=== PATIENT | male | born 1980 | race Caucasian/White ===

== ENCOUNTER 2016-07-02 20:57 | Emergency (ER) | payer BC, OTHER ==
[~2016-07-02] VITALS: Ht 177.8 cm; Wt 99.8 kg
[2016-07-02] MEDS ORDERED: IBUP600T26 PO (22:36)
[2016-07-02] MEDS ORDERED: SOMA350T PO (22:36)
[2016-07-02] MEDS ORDERED: IBUPROFEN 600 MG TAB PO ONE (22:45)
[2016-07-02] MEDS ORDERED: diazePAM 5 MG TAB PO ONE (22:45)
[2016-07-02 22:48] VITALS: BP 118/88
== END 2016-07-02 22:49 | disposition home or self-care (01) ==
LOC: M ED 22:22
DX: M54.12 Radiculopathy, cervical region (principal); Z87.891 Personal history of nicotine dependence

== ENCOUNTER → 2017-12-04 | Outpatient (REF) | payer BC, OTHER | LOC: M SFHCLERA 18:45 | DX: J02.9 Acute pharyngitis, unspecified (principal) | CPT/HCPCS: 87880 ==

== ENCOUNTER → 2018-09-03 | Outpatient (CLI) | payer BC ==
[~2018-09-03] MED LIST: IBUP-1022 PO; SOMA350T PO
--- NOTE | 2018-09-03 12:06 | REP ---
Clinical: Trauma. Technique: AP, lateral, bilateral oblique views left hand . Findings: The osseous structures and joint spaces are intact and normal. There is no evidence for acute fracture or dislocation. Surrounding soft tissues are unremarkable. No subcutaneous emphysema or radiodense foreign body. Impression: Normal left hand series. No acute fracture or dislocation. Electronically Signed by Wilder William MD 09/03/2018 11:58 A
== END ==
LOC: M LRY 11:39
PROVIDERS: ATTEND Nurse Practitioner Family
DX: S69.92XA Unspecified injury of left wrist, hand and finger(s), initial encounter (principal); X58.XXXA Exposure to other specified factors, initial encounter; Y92.89 Other specified places as the place of occurrence of the external cause

== ENCOUNTER → 2020-01-10 | Outpatient (CLI) | payer BC ==
[2020-01-10 17:15] LABS: BASO # 0.1 10^3/uL (0.0-0.2); BASO % 0.9 % (0.0-1.0); EOS # 0.5 10^3/uL (0.0-0.5); HEMATOCRIT 48.7 % (42.0-52.0); HEMOGLOBIN 16.5 g/dl (13.5-17.5); LYMPH # 2.6 10^3/uL (1.5-5.0); MEAN CORPUSCULAR HGB CONC 33.9 g/dl (32.0-36.5); MEAN CORPUSCULAR VOLUME 91.4 fl (80.0-96.0); MONO # 0.9 10^3/uL (0.0-0.8); MONO % 9.4 % (0.0-5.0); NEUTROPHILS # 5.1 10^3/uL (1.5-8.5); NEUTROPHILS % 56.3 % (36.0-66.0); PLATELET COUNT, AUTOMATED 261 10^3/uL (150-450); RED BLOOD COUNT 5.33 10^6/uL (4.30-6.10); WHITE BLOOD COUNT 9.1 10^3/uL (4.0-10.0)
[2020-01-10 18:50] LABS: C REACTIVE PROTEIN QUANTITATIV 0.79 MG/DL (0.00-0.30); RHEUMATOID FACTOR QUANT < 10.0 IU/ML (<15.0); URIC ACID 5.3 MG/DL (3.5-7.2)
[2020-01-10 19:05] LABS: ERYTHROCYTE SEDIMENTATION RATE 6 mm/hr (0-15)
[2020-01-12 16:29] LABS: ANTINUCLEAR ANTIBODIES DIRECT Negative (Negative); Lyme Disease IgG/IgM Antibodie <0.91 ISR (0.00-0.90); Lyme Disease IgM Ab Quantitati <0.80 index (0.00-0.79)
== END ==
LOC: M WUC 11:25
PROVIDERS: ATTEND Physician Assistant Surgical
DX: M25.461 Effusion, right knee (principal)

== ENCOUNTER 2021-11-11 05:46 | Emergency (ER) | payer BC, SELFPAY ==
[~2021-11-11] VITALS: Ht 180.3 cm; Wt 90.1 kg
[2021-11-11 06:13] LABS: HEMATOCRIT 48.8 % (42.0-52.0); HEMOGLOBIN 17.2 g/dl (13.5-17.5); MEAN CORPUSCULAR HEMOGLOBIN 31.1 pg (27.0-33.0); MEAN CORPUSCULAR HGB CONC 35.2 g/dl (32.0-36.5); MEAN CORPUSCULAR VOLUME 88.2 fl (80.0-96.0); PLATELET COUNT, AUTOMATED 299 10^3/uL (150-450); RED BLOOD COUNT 5.53 10^6/uL (4.30-6.10); WHITE BLOOD COUNT 9.4 10^3/uL (4.0-10.0)
[2021-11-11 06:39] LABS: RSV AMPLIFICATION NEGATIVE (NEGATIVE)
[2021-11-11 06:52] LABS: ACETAMINOPHEN LEVEL < 2.0 UG/ML (10.0-30.0); ALBUMIN 4.4 GM/DL (3.2-5.2); ALT/SGPT 23 U/L (12-78); BILIRUBIN,DIRECT 0.1 MG/DL (0.0-0.2); BILIRUBIN,TOTAL 0.3 MG/DL (0.2-1.0); BLOOD UREA NITROGEN 10 MG/DL (7-18); CALCIUM LEVEL 10.4 MG/DL (8.5-10.1); CARBON DIOXIDE LEVEL 25 MEQ/L (21-32); CHLORIDE LEVEL 103 MEQ/L (98-107); ETHYL ALCOHOL (ETHANOL) 0.135 % (0.000-0.010); GLOMERULAR FILTRATION RATE > 60.0 (>60); GLUCOSE, FASTING 116 MG/DL (70-100); POTASSIUM SERUM 3.7 MEQ/L (3.5-5.1); SALICYLATE LEVEL 1.8 MG/DL (5.0-30.0); SODIUM LEVEL 136 MEQ/L (136-145); TOTAL PROTEIN 7.9 GM/DL (6.4-8.2)
[2021-11-11 07:40] LABS: AMPHETAMINES LEVEL URINE NEGATIVE (NEGATIVE); BARBITURATES URINE NEGATIVE (NEGATIVE); BENZODIAZEPINES URINE NEGATIVE (NEGATIVE); CANNABINOIDS URINE NEGATIVE (NEGATIVE); COCAINE METABOLITE URINE NEGATIVE (NEGATIVE); METHADONE URINE NEGATIVE (NEGATIVE); OPIATES URINE NEGATIVE (NEGATIVE); PHENCYCLIDINE URINE NEGATIVE (NEGATIVE)
[2021-11-11] MEDS ORDERED: HOME MED LIST COMPLETE! XX SCH (13:10)
[2021-11-13 16:25] VITALS: BP 188/99
== END 2021-11-13 16:30 | disposition home or self-care (01) ==
LOC: M ED 05:46
DX: F10.24 Alcohol dependence with alcohol-induced mood disorder (principal); M06.9 Rheumatoid arthritis, unspecified; F17.200 Nicotine dependence, unspecified, uncomplicated; F17.290 Nicotine dependence, other tobacco product, uncomplicated; F12.10 Cannabis abuse, uncomplicated

== ENCOUNTER 2023-04-23 06:42 | Inpatient (IN) | payer BC, SELFPAY ==
[~2023-04-23] VITALS: Ht 180.3 cm; Wt 95.5 kg
[2023-04-23 07:45] LABS: HEMATOCRIT 47.4 % (42.0-52.0); HEMOGLOBIN 16.7 g/dl (13.5-17.5); MEAN CORPUSCULAR HEMOGLOBIN 31.5 pg (27.0-33.0); MEAN CORPUSCULAR HGB CONC 35.2 g/dl (32.0-36.5); MEAN CORPUSCULAR VOLUME 89.3 fl (80.0-96.0); PLATELET COUNT, AUTOMATED 238 10^3/uL (150-450); RED BLOOD COUNT 5.31 10^6/uL (4.30-6.10); WHITE BLOOD COUNT 9.9 10^3/uL (4.0-10.0)
[2023-04-23 08:10] LABS: ETHYL ALCOHOL (ETHANOL) 0.009 % (0.000-0.010)
[2023-04-23 08:12] LABS: ALBUMIN 4.5 G/DL (3.2-5.2); ALKALINE PHOSPHATASE 71 U/L (46-116); ALT/SGPT 31 U/L (7.0-40); AST/SGOT 25 U/L (<34); BILIRUBIN,DIRECT 0.1 MG/DL (<0.4); BILIRUBIN,TOTAL 0.3 MG/DL (0.3-1.2); BLOOD UREA NITROGEN 8 MG/DL (9-23); CALCIUM LEVEL 9.9 MG/DL (8.5-10.1); CARBON DIOXIDE LEVEL 25 MMOL/L (20-31); CHLORIDE LEVEL 104 MMOL/L (98-107); CREATININE FOR GFR 0.93 MG/DL (0.70-1.30); GLOMERULAR FILTRATION RATE > 60.0 (>60); GLUCOSE, FASTING 100 MG/DL (60-100); SALICYLATE LEVEL < 3.0 MG/DL (<30); SODIUM LEVEL 136 MMOL/L (136-145); TOTAL PROTEIN 7.5 G/DL (5.7-8.2)
[2023-04-23] MEDS ORDERED: HOME MED LIST COMPLETE! XX SCH (10:25)
[2023-04-23 10:38] LABS: AMPHETAMINES LEVEL URINE NEGATIVE (NEGATIVE); BARBITURATES URINE NEGATIVE (NEGATIVE); BENZODIAZEPINES URINE NEGATIVE (NEGATIVE); METHADONE URINE NEGATIVE (NEGATIVE); OPIATES URINE NEGATIVE (NEGATIVE); PHENCYCLIDINE URINE NEGATIVE (NEGATIVE)
[2023-04-23 10:46] LABS: CANNABINOIDS URINE POSITIVE (NEGATIVE); COCAINE METABOLITE URINE POSITIVE (NEGATIVE)
[2023-04-23] MEDS: ONDANSETRON 4MG ORAL DISINTEGRATING TAB PO ONE (10:46)
[2023-04-23] MEDS: LORazepam 1 MG TAB PO STA (10:46)
[2023-04-23] MEDS ORDERED: diphenhydrAMINE 25MG CAP PO PRN (13:55)
[2023-04-23] MEDS ORDERED: LORazepam 2 MG TAB PO PRN (13:55)
[2023-04-23] MEDS ORDERED: MAALOX 30 ML SUSP *UDC PO PRN (13:55)
[2023-04-23] MEDS ORDERED: MOM 30ML SUSPENSION UDC PO PRN (13:55)
[2023-04-23] MEDS ORDERED: IBUPROFEN 400MG TAB PO PRN (13:55)
[2023-04-23] MEDS ORDERED: ACETAMINOPHEN TAB 650MG DOSE (2X325MG) PO PRN (13:55)
[2023-04-23] MEDS: THIAMINE 100 MG TAB PO SCH (14:19)
[2023-04-23 17:00] VITALS: BP 130/98
[2023-04-23 17:01] VITALS: BP 130/98; TEMP 97; O2SAT 97
[2023-04-23] MEDS: traZODone 50 MG TAB PO PRN (21:15)
[2023-04-23 21:17] VITALS: BP 141/89
[2023-04-24 05:52] VITALS: BP 140/94
[2023-04-24 06:36] VITALS: BP 140/94; TEMP 98.5; O2SAT 97
[2023-04-24] MEDS: MULTIVITAMINS/MINERALS THERAP 1 TAB PO SCH (09:03)
[2023-04-24] MEDS: FOLIC ACID 1MG TAB PO SCH (09:03)
[2023-04-24] MEDS: LORazepam 1 MG TAB PO STA (09:03)
[2023-04-24] MEDS: OXAZEPAM 15MG CAP PO SCH (12:55)
[2023-04-24] MEDS: SERTRALINE HCL 50 MG TAB PO SCH (12:55)
[2023-04-24 14:05] VITALS: BP 142/88
[2023-04-24 17:54] VITALS: BP 138/90; TEMP 98.6; O2SAT 98
[2023-04-25 06:16] VITALS: BP 96/66; TEMP 97.7; O2SAT 99
[2023-04-25] MEDS: NICOTINE POLACRILEX 2 MG GUM PO PRN (09:24)
[2023-04-25 09:40] VITALS: BP 128/89
[2023-04-25] MEDS: OXAZEPAM 15MG CAP PO SCH (13:31)
[2023-04-25 14:30] VITALS: BP 126/88
[2023-04-25 14:44] VITALS: BP 126/88; TEMP 97.6; O2SAT 97
[2023-04-26 06:38] VITALS: BP 113/70; TEMP 98; O2SAT 98
[2023-04-26] MEDS: NALTREXONE 50 MG TAB PO SCH (08:43)
[2023-04-26 16:07] VITALS: BP 131/87; TEMP 98.2; O2SAT 96
[2023-04-26] MEDS: OXAZEPAM 15MG CAP PO SCH (17:40)
[2023-04-27 06:24] VITALS: BP 123/74; TEMP 97.5; O2SAT 97
[2023-04-27 16:01] VITALS: BP 134/88; TEMP 95.5; O2SAT 98
[2023-04-28 06:18] VITALS: BP 124/72; TEMP 97.9; O2SAT 98
[2023-04-28] MEDS: OXAZEPAM 15MG CAP PO SCH (08:14)
[2023-04-28] MEDS: busPIRone 5 MG TAB PO SCH (10:08)
[2023-04-28] MEDS: LORazepam 0.5 MG TAB PO STA (10:09)
[2023-04-28 17:42] VITALS: BP 135/84; TEMP 97.8; O2SAT 98
[2023-04-29 06:20] VITALS: BP 118/66; TEMP 97.2; O2SAT 95
[2023-04-29 15:48] VITALS: BP 127/85; TEMP 97.5; O2SAT 98
[2023-04-30 06:27] VITALS: BP 125/76; TEMP 97.9; O2SAT 98
[2023-04-30] MEDS ORDERED: TRAZ-252 PO (15:02)
[2023-04-30] MEDS ORDERED: NALT50TA4 PO (15:02)
[2023-04-30] MEDS ORDERED: BUSP5TA PO (15:02)
[2023-04-30] MEDS ORDERED: NICO2GUM PO (15:02)
[2023-04-30] MEDS ORDERED: SERT50TA29 PO (15:02)
[2023-04-30 16:10] VITALS: BP 114/68; TEMP 97.3; O2SAT 97
[2023-05-01 06:16] VITALS: BP 119/78; TEMP 98; O2SAT 100
== END 2023-05-01 07:56 | DRG 751 ==
LOC: M ED 06:42 → M ED INP 13:51 → M PSY 16:24
PROVIDERS: ADMIT Student in an Organized Health Care Education/Training Program; ATTEND Student in an Organized Health Care Education/Training Program
DX: F32.1 Major depressive disorder, single episode, moderate (principal); F10.20 Alcohol dependence, uncomplicated; F41.9 Anxiety disorder, unspecified; F14.90 Cocaine use, unspecified, uncomplicated; F12.90 Cannabis use, unspecified, uncomplicated; F17.210 Nicotine dependence, cigarettes, uncomplicated; R45.851 Suicidal ideations; I10 Essential (primary) hypertension; Z63.5 Disruption of family by separation and divorce; Z11.59 Encounter for screening for other viral diseases